=== PATIENT | male | born 1985 | race Caucasian/White ===

== ENCOUNTER 2017-01-28 09:56 | Emergency (ER) | payer SELFPAY ==
[2017-01-28 10:03] VITALS: BP 152/101; PULSE 86; TEMP 98.6; BMI 30.7
--- NOTE | 2017-01-28 11:02 | PDOC ---
History of Present Illness - General Chief Complaint: Bite Stated Complaint: TICK BITE, BACK PAIN Time Seen by Provider: 01/28/17 10:48 History Source: Patient Exam Limitations: No Limitations - History of Present Illness Initial Comments: 01/28/17 11:25 01/28/17 11:26 Chief complaint: Tick on right upper back noted yesterday girlfriend removed it History of present illness: Patient is a 31-year-old male with no significant medical history here today due to patient noticing a tick on his right upper back yesterday. Patient's girlfriend removed it. Patient is unsure how long it was on his back does not think that it wasn't engorged is not sure. Patient denies any fever or rash or joint aches. 01/28/17 11:28 Timing/Duration: other (scab from tick bite rt. upper back ) Severity: mild Associated Symptoms: reports: other (scab from tick rt. upper back ) Past History - Past Medical History Allergies/Adverse Reactions: Allergies Allergy/AdvReac Type Severity Reaction Status Date / Time No Known Allergies Allergy Verified 01/28/17 10:01 Home Medications: Ambulatory Orders NK [No Known Home Medication] 01/28/17 - Psycho/Social/Smoking Cessation Hx Anxiety: No Suicidal Ideation: No Smoking History: Never smoked Have you smoked in the past 12 months: No Information on smoking cessation initiated: No Hx Alcohol Use: No Drug/Substance Use Hx: No Substance Use Type: None Review of Systems - Review of Systems Able to Perform ROS?: Yes Constitutional: No: Symptoms Reported HEENTM: No: Symptoms Reported Respiratory: No: Symptoms reported Cardiac (ROS): No: Symptoms Reported ABD/GI: No: Symptoms Reported : No: Symptoms Reported Integumentary: Yes: Other (rt. upper back scab pea size) *Physical Exam - Vital Signs Last Vital Signs Temp Pulse Resp BP Pulse Ox 98.6 F 86 18 152/101 99 01/28/17 10:01 01/28/17 10:01 01/28/17 10:01 01/28/17 10:01 01/28/17 10:01 - Physical Exam General Appearance: Yes: Appropriately Dressed Respiratory/Chest: positive: Lungs Clear, Normal Breath Sounds. negative: Chest Tender, Respiratory Distress Cardiovascular: positive: Regular Rhythm, Regular Rate, S1, S2 Integumentary: positive: Moist, Other (scab rt. upper back where tick had been removed, no remaining pieces noted, pea size scab) Medical Decision Making - Medical Decision Making 01/28/17 11:28 Patient is a 31-year-old male with no significant medical history here today due to patient noticing a tick on his right upper back yesterday. Patient's girlfriend removed it. Patient is unsure how long it was on his back does not think that it wasn't engorged is not sure. Patient denies any fever or rash or joint aches. tick bite rt. upper back PLAN: tick had been removed yesterday unsure how long it had been there, doxycycline 200 mg po now *DC/Admit/Observation/Transfer Diagnosis at time of Disposition: Prophylactic antibiotic Tick bite of back Qualifiers: Encounter type: initial encounter Qualified Code(s): S30.860A - Insect bite ( nonvenomous) of lower back and pelvis, initial encounter - Discharge Dispostion Condition at time of disposition: Stable - Patient Instructions Additional Instructions: cleanse area where tick was embeddedl with antibacterial soap and water pat dry and apply tiny amount of bacitracin twice daily until scab falls off Follow-up with your primary care provider within the next few days Return to emergency room if any fever, rash, or any new symptoms develop Today your treated with doxycycline 200 mg prophylactic treatment to prevent Lyme's disease Patient voiced understanding of discharge instructions and all questions were answered
[2017-01-28] MEDS ORDERED: DOXYCYCLINE HYCLATE 100 MG CAPSULE PO ONE ×2 (11:18→11:24)
== END 2017-01-28 11:42 | disposition home or self-care (01) ==
LOC: JERFT 09:56
DX: S20.461A Insect bite (nonvenomous) of right back wall of thorax, initial encounter (principal); W57.XXXA Bitten or stung by nonvenomous insect and other nonvenomous arthropods, initial encounter; Y93.89 Activity, other specified; Y92.89 Other specified places as the place of occurrence of the external cause; Y99.9 Unspecified external cause status
CPT/HCPCS: 99281-25